=== PATIENT | female | born 1955 ===

== ENCOUNTER 2024-05-18 07:36 | Day surgery (SDC) | payer OTHER ==
[2024-05-15 14:23] VITALS: BP 170/90
[~2024-05-18] VITALS: Ht 149.9 cm; Wt 60.8 kg
[~2024-05-18 07:36] MED LIST: COZAAR100 MG PO; CYMBALTA60 MG PO; LOVASTATIN10 MG PO; NORVASC5 MG PO
[2024-05-18] MEDS ORDERED: METRONIDAZOLE/SODIUM CHLORIDE 500 MG/100 ML PIGGYBACK IV ONE (13:01)
[2024-05-18] MEDS ORDERED: CEFTRIAXONE SODIUM 2,000 MG VIAL ONE (13:12)
[2024-05-18] MEDS ORDERED: BUPIVACAINE HCL/MPF 0.5% 30ML VIAL ONE (13:38)
[2024-05-18] MEDS ORDERED: DIBUCAINE 30 GM TUBE ONE (13:38)
[2024-05-18] MEDS ORDERED: HEMOSTATIC MATRIX 1 KIT KIT TOP ONE (13:38)
[2024-05-18] MEDS ORDERED: LIDOCAINE HCL 1%/EPINEPHRINE 20ML VIAL IJ ONE (13:38)
[2024-05-18] MEDS ORDERED: POVIDONE-IODINE 118 ML BOTT TOP ONE (13:38)
[2024-05-18] MEDS ORDERED: OXYCODONE HCL5 MG PO (14:41)
[2024-05-18] MEDS ORDERED: TAMSULOSIN HCL 0.4 MG CAP PO ONE ×2 (14:45→16:11)
== END 2024-05-18 18:05 | disposition home or self-care (01) ==
LOC: CIR.AMB 07:36
PROVIDERS: ATTEND Surgery
DX: K64.2 Third degree hemorrhoids (principal); K64.4 Residual hemorrhoidal skin tags; K62.89 Other specified diseases of anus and rectum; K62.5 Hemorrhage of anus and rectum; K57.30 Diverticulosis of large intestine without perforation or abscess without bleeding; I10 Essential (primary) hypertension